=== PATIENT | female | born 1940 ===

== ENCOUNTER 2024-12-31 09:14 | Outpatient (CLI) | payer OTHER | END 2024-12-31 09:18 | disposition home or self-care (01) | LOC: RAD 09:14 | PROVIDERS: ATTEND Internal Medicine Rheumatology | DX: M15.8 Other polyosteoarthritis (principal); M25.512 Pain in left shoulder; M25.511 Pain in right shoulder ==

== ENCOUNTER 2025-03-25 08:17 | Outpatient (CLI) | payer OTHER | END 2025-03-25 08:20 | disposition home or self-care (01) | LOC: SONOGRAMA 08:17 | PROVIDERS: ATTEND Internal Medicine Rheumatology | DX: M25.511 Pain in right shoulder (principal) ==